=== PATIENT | female | born 1950 | race Caucasian/White ===

== ENCOUNTER 2016-06-10 17:21 | Emergency (ER) | payer MEDICARE, OTHER ==
--- NOTE | 2016-06-30 21:26 | ER ---
ADMIT: 06/10/2016 RM/LOC: ER [facility] MR#: [id number] [facility] [address] [place], [place] [id number] [address] [place] [address] Emergency Room Report SEX: F AGE: 66 : 1950 DATE: 06/10/2016 A 66-year-old female, comes to the Emergency Department with complaints of headache. She states this is similar to all her prior headaches. She is out of her Imitrex, and cannot take her D.H.E. She realized, she had just taken it within 2 days. See T-sheet for history and physical. The patient is diagnosed with headache. Gave her diphenhydramine, ketorolac, and instructed to follow up with her doctor this week. Rajendra Heredia MD/ jessica JOB #: [id number] CC: Gilbert Martinez MD, Attending Physician
== END 2016-06-10 19:13 | disposition home or self-care (01) ==
LOC: ER 17:21
DX: R51 Headache (principal); Z88.0 Allergy status to penicillin; Z79.899 Other long term (current) drug therapy

== ENCOUNTER → 2016-06-12 | Outpatient (CLI) | payer MEDICARE, OTHER | END | disposition home or self-care (01) | LOC: THER.SSS 07:17 → EDSTATUS 09:27 → THER.SSS 09:36 | DX: G43.909 Migraine, unspecified, not intractable, without status migrainosus (principal) ==